=== PATIENT | female | born 1990 | race Caucasian/White ===

== ENCOUNTER 2017-05-21 08:31 | Emergency (ER) | payer OTHER ==
[~2017-05-21] VITALS: Ht 149.9 cm; Wt 54.0 kg
[2017-05-21 08:43] VITALS: BP 111/65; PULSE 79; RESP 16; TEMP 97.9; O2SAT 100
--- NOTE | 2017-05-21 09:48 | PD ---
HPI Chief Complaint: Psychiatric Symptoms Time Seen by Provider: 08:49 Travel History International Travel<30 days: No Contact w/Intl Traveler<30days: No Traveled to known affect area: No History of Present Illness HPI The patient was seen and examined in the presence of the nurse. This patient presents under police Pang act. She is having problems with depression. Today she decided to hang herself and put an extension cord around her neck. She also has some self-inflicted superficial cuts to the right wrist. She denies physical health problems or physical complaints. She is not having neck pain or trouble with swallowing breathing speaking etc. symptoms severity is moderate. No alleviating factors. Duration one week PFSH Past Medical History Anxiety: Yes Depression: Yes Diminished Hearing: No Neurologic: Yes (ANXIETY) Tetanus Vaccination: > 5 Years Influenza Vaccination: Yes ?: Not LMP: 04/22/17 : 4 Para: 3 Miscarriage: 1 : 0 Past Surgical History Surgical History: No Previous Surgery Social History Alcohol Use: No (PT DENIES) Tobacco Use: No (PT DENIES) Substance Use: No (PT DENIES) Allergies-Medications (Allergen,Severity, Reaction): Coded Allergies: Amoxicillin (Verified Allergy, Intermediate, RASH, 05/21/17) Penicillin (Verified Allergy, Intermediate, RASH, 05/21/17) Erythromycin (Verified Allergy, Unknown, Rash, 05/21/17) Reported Meds & Prescriptions Reported Meds & Active Scripts Active No Active Prescriptions or Reported Medications Review of Systems General / Constitutional: No: Fever Eyes: No: Visual changes HENT: No: Headaches Cardiovascular: No: Chest Pain or Discomfort Respiratory: No: Shortness of Breath Gastrointestinal: No: Abdominal Pain Genitourinary: No: Dysuria Musculoskeletal: No: Pain Skin: No Rash Neurologic: No: Weakness Psychiatric: Positive: Anxiety, Depression, Suicidal Ideations Endocrine: No: Polydipsia Hematologic/Lymphatic: No: Easy Bruising Physical Exam Narrative GENERAL: Well-nourished, well-developed patient in no apparent distress. SKIN: Focused skin assessment reveals no rash and nodules. Skin is Warm and dry. HEAD: Atraumatic. Normocephalic. EYES: Pupils equal and round. No scleral icterus. No injection or drainage. ENT: No nasal bleeding or discharge. Mucous membranes pink and moist. NECK: Trachea midline. No JVD. No bruising or swelling of neck CARDIOVASCULAR: Regular rate and rhythm. No murmur appreciated. RESPIRATORY: No accessory muscle use. Clear to auscultation. Breath sounds equal bilaterally. GASTROINTESTINAL: Abdomen soft, non-tender, nondistended. Hepatic and splenic margins not palpable. MUSCULOSKELETAL: No obvious deformities. No clubbing. No cyanosis. No edema. NEUROLOGICAL: Awake and alert. No obvious cranial nerve deficits. Motor grossly within normal limits. Normal speech. PSYCHIATRIC: Depressed mood and flat affect; insight and judgment reduced. Data Data Last Documented VS Vital Signs Date Time Temp Pulse Resp B/P Pulse Ox O2 Delivery O2 Flow Rate FiO2 05/21/17 08:53 80 16 05/21/17 08:43 97.9 111/65 100 Orders Complete Blood Count With Diff (05/21/17 09:42) Basic Metabolic Panel (Bmp) (05/21/17 09:42) Ed Urine Pregnancytest Poc (05/21/17 09:42) Psych Screen (05/21/17 09:42) Drug Screen, Random Urine (05/21/17 09:42) Alcohol (Ethanol) (05/21/17 09:42) Labs Laboratory Tests Test 05/21/17 09:40 White Blood Count 9.0 TH/MM3 Red Blood Count 4.53 MIL/MM3 Hemoglobin 12.0 GM/DL Hematocrit 36.5 % Mean Corpuscular Volume 80.5 FL Mean Corpuscular Hemoglobin 26.4 PG Mean Corpuscular Hemoglobin 32.8 % Concent Red Cell Distribution Width 13.4 % Platelet Count 242 TH/MM3 Mean Platelet Volume 8.9 FL Neutrophils (%) (Auto) 55.1 % Lymphocytes (%) (Auto) 34.5 % Monocytes (%) (Auto) 8.1 % Eosinophils (%) (Auto) 1.9 % Basophils (%) (Auto) 0.4 % Neutrophils # (Auto) 5.0 TH/MM3 Lymphocytes # (Auto) 3.1 TH/MM3 Monocytes # (Auto) 0.7 TH/MM3 Eosinophils # (Auto) 0.2 TH/MM3 Basophils # (Auto) 0.0 TH/MM3 CBC Comment DIFF FINAL Differential Comment Sodium Level 140 MEQ/L Potassium Level 3.9 MEQ/L Chloride Level 108 MEQ/L Carbon Dioxide Level 26.9 MEQ/L Anion Gap 5 MEQ/L Blood Urea Nitrogen 14 MG/DL Creatinine 0.61 MG/DL Estimat Glomerular Filtration 119 ML/MIN Rate Random Glucose 76 MG/DL Calcium Level 8.7 MG/DL Urine Opiates Screen NEG Urine Barbiturates Screen NEG Urine Amphetamines Screen NEG Urine Benzodiazepines Screen POS Urine Cocaine Screen NEG Urine Cannabinoids Screen POS Ethyl Alcohol Level LESS THAN 3 MG/DL MDM Medical Decision Making Medical Screen Exam Complete: Yes Emergency Medical Condition: Yes Medical Record Reviewed: Yes Differential Diagnosis Suicidal ideation, depression, adjustment disorder Narrative Course I have reviewed the patient's electronic medical record. I reviewed her Pang act form written by the [facility]'s Department I've ordered medical clearance workup. CBC is normal Metabolic profile is normal Alcohol level is negative Tox screen is positive for benzo and Urine is negative I've ordered psych screen as she is here under Pang act. Her tetanus is up-to- date on her superficial scratches require no treatment. I don't think she needs neck imaging. There is no objective findings and she is looking clinically well. 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
[2017-05-21 10:12] LABS: BASOPHIL % 0.4 % (0.0-2.0); EOSINOPHIL # 0.2 TH/MM3 (0-0.4); EOSINOPHIL % 1.9 % (0.0-4.0); HEMATOCRIT 36.5 % (35.0-46.0); HEMO FLAGS DIFF FINAL; LYMPH % 34.5 % (9.0-44.0); LYMPHOCYTE # 3.1 TH/MM3 (1.0-4.8); MEAN CELL VOLUME 80.5 FL (80.0-100.0); MEAN CORPUSCULAR HEMOGLOBIN 26.4 PG (27.0-34.0); MEAN CORPUSCULAR HGB CONC 32.8 % (32.0-36.0); MONO % 8.1 % (0.0-8.0); NEUT % 55.1 % (16.0-70.0); PLATELET COUNT 242 TH/MM3 (150-450); RED BLOOD COUNT 4.53 MIL/MM3 (4.00-5.30); RED CELL DISTRIBUTION WIDTH 13.4 % (11.6-17.2)
[2017-05-21 10:26] LABS: AMPHETAMINE, URINE NEG (NEG); BARBITURATES, URINE NEG (NEG); COCAINE, URINE NEG (NEG)
[2017-05-21 10:28] LABS: ANION GAP 5 MEQ/L (5-15); BICARBONATE 26.9 MEQ/L (21.0-32.0); BLOOD UREA NITROGEN 14 MG/DL (7-18); CHLORIDE 108 MEQ/L (98-107); GLOMERULAR FILTRATION RATE 119 ML/MIN (>89); POTASSIUM 3.9 MEQ/L (3.5-5.1); SODIUM (NA) 140 MEQ/L (136-145)
[2017-05-21 12:00] VITALS: BP 109/72; PULSE 76; RESP 15; TEMP 97.7; O2SAT 99
[2017-05-21 14:25] VITALS: BP 118/76; PULSE 76; RESP 16; TEMP 97.9; O2SAT 99
[2017-05-21 15:15] VITALS: BP 107/68; PULSE 69; RESP 18; TEMP 98.1; O2SAT 98
--- NOTE | 2017-05-21 17:45 | PD ---
History of Present Illness Chief Complaint: Psychiatric Symptoms Time Seen by Provider: 17:00 Travel History International Travel<30 Days: No Contact w/Intl Traveler<30days: No Known affected area: No Legal Status Legal Status: Pang Act Pang Act Signed By: Cassie Wilson History of Present Illness: The patient apparently made several superficial cuts on her left wrist in an attempt to harm herself. She also grabbed a extension cord to strangle herself with. She reportedly made herself unconscious but this physician does not see significant evidence of marking about her neck. She reportedly suffers from depression but does not take medication for this. She has been since March of this year. She has a daughter from a different relationship. She was positive for both benzodiazepines and for marijuana. Finally, the patient is joking about hospital food at this time. PFSH Past Medical History Medical History: Denies Significant Hx Anxiety: Yes Depression: Yes Diminished Hearing: No Neurologic: Yes (ANXIETY) Tetanus Vaccination: > 5 Years Influenza Vaccination: Yes ?: Not LMP: 04/22/17 : 4 Para: 3 Miscarriage: 1 : 0 Past Surgical History Surgical History: No Previous Surgery Psychiatric History Psychiatric History Hx Psychiatric Treatment: This physician does not see significant objective clinical evidence of a mood disorder or any other major mental disorder. This physician does see what appears to be evidence of a personality disorder History of Inpatient Treatment: No Guns or firearms in home: No Social History Hx Alcohol Use: No (PT DENIES) Hx Tobacco Use: No (PT DENIES) Hx Substance Use: No (PT DENIES) Substance Use Type: Marijuana, Benzos (Valium,Xanax) Other Substances Used: PATIENT DENIED SUBSTANCE USE Hx of Substance Use Treatment: No Allergies-Medications (Allergen,Severity, Reaction): Coded Allergies: Amoxicillin (Verified Allergy, Intermediate, RASH, 05/21/17) Penicillin (Verified Allergy, Intermediate, RASH, 05/21/17) Erythromycin (Verified Allergy, Unknown, Rash, 05/21/17) Reported Meds & Prescriptions Reported Meds & Active Scripts Active No Active Prescriptions or Reported Medications Review of Systems Except as stated in HPI: all other systems reviewed are Neg Exam Alert: Yes [place]: Person, Place, Date, Situation Mood: Calm Affect: Appropriate, Euthymic Speech: Clear, Logical Eye Contact: Normal Memory Intact: Immediate, Recent, Remote Insight/Judgement Adequate MDM Medical Decision Making Medical Record Reviewed: Yes Assessment/Plan This is a 27-year-old female, recently , who made superficial cuts to her wrist and reportedly attempted to strangle herself with an extension cord. Patient is joking with this physician about hospital food. She is positive for benzodiazepines and marijuana. Her cognition is intact and she demonstrates no psychotic symptoms. She is verbally errol for safety. This physician feels she has an adjustment disorder with her and this is exacerbated by her personality disorder. She does not meet criteria for inpatient psychiatric hospitalization and she does not meet criteria for Pang acted this time. Orders Complete Blood Count With Diff (05/21/17 09:42) Basic Metabolic Panel (Bmp) (05/21/17 09:42) Ed Urine Pregnancytest Poc (05/21/17 09:42) Psych Screen (05/21/17 09:42) Drug Screen, Random Urine (05/21/17 09:42) Alcohol (Ethanol) (05/21/17 09:42) Diet Regular Basic (05/21/17 Lunch) Results Vital Signs Date Time Temp Pulse Resp B/P Pulse Ox O2 Delivery O2 Flow Rate FiO2 05/21/17 15:15 98.1 69 18 107/68 98 Room Air 05/21/17 14:25 97.9 76 16 118/76 99 Room Air 05/21/17 12:00 97.7 76 15 109/72 99 Room Air 05/21/17 08:53 80 16 05/21/17 08:43 97.9 79 16 111/65 100 Laboratory Tests Test 05/21/17 09:40 White Blood Count 9.0 Red Blood Count 4.53 Hemoglobin 12.0 Hematocrit 36.5 Mean Corpuscular Volume 80.5 Mean Corpuscular Hemoglobin 26.4 Mean Corpuscular Hemoglobin 32.8 Concent Red Cell Distribution Width 13.4 Platelet Count 242 Mean Platelet Volume 8.9 Neutrophils (%) (Auto) 55.1 Lymphocytes (%) (Auto) 34.5 Monocytes (%) (Auto) 8.1 Eosinophils (%) (Auto) 1.9 Basophils (%) (Auto) 0.4 Neutrophils # (Auto) 5.0 Lymphocytes # (Auto) 3.1 Monocytes # (Auto) 0.7 Eosinophils # (Auto) 0.2 Basophils # (Auto) 0.0 CBC Comment DIFF FINAL Differential Comment Sodium Level 140 Potassium Level 3.9 Chloride Level 108 Carbon Dioxide Level 26.9 Anion Gap 5 Blood Urea Nitrogen 14 Creatinine 0.61 Estimat Glomerular Filtration 119 Rate Random Glucose 76 Calcium Level 8.7 Urine Opiates Screen NEG Urine Barbiturates Screen NEG Urine Amphetamines Screen NEG Urine Benzodiazepines Screen POS Urine Cocaine Screen NEG Urine Cannabinoids Screen POS Ethyl Alcohol Level LESS THAN 3 Diagnosis Primary Impression: Adjustment disorder with mixed disturbance of emotions and conduct Additional Impressions: Benzodiazepine abuse Cannabis abuse Personality disorder Prescriptions No Active Prescriptions or Reported Meds Problem Qualifiers Tee Reyes MD May 21, 2017 17:45
[2017-05-21 17:57] VITALS: BP 118/83; TEMP 98.7
== END 2017-05-21 18:45 | disposition home or self-care (01) ==
LOC: NEPC 08:31 → NEPJ 18:45
DX: F43.25 Adjustment disorder with mixed disturbance of emotions and conduct (principal); F12.10 Cannabis abuse, uncomplicated; F13.10 Sedative, hypnotic or anxiolytic abuse, uncomplicated; F60.9 Personality disorder, unspecified
CPT/HCPCS: 80048; 80307; 84703; 85025; 99284